=== PATIENT | male | born 1940 | race Caucasian/White ===

== ENCOUNTER → 2016-12-28 | Outpatient (CLI) | payer OTHER | LOC: FIMAGING 12:43 | PROVIDERS: ATTEND Family Medicine | DX: Z12.9 Encounter for screening for malignant neoplasm, site unspecified (principal); Z87.891 Personal history of nicotine dependence; J84.10 Pulmonary fibrosis, unspecified; K57.30 Diverticulosis of large intestine without perforation or abscess without bleeding ==

== ENCOUNTER 2017-05-02 16:26 | Emergency (ER) | payer OTHER ==
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
[2017-05-02 17:51] VITALS: BP 125/84; PULSE 81; RESP 20; TEMP 98.1; O2SAT 93
== END 2017-05-02 17:51 | disposition home or self-care (01) ==
DX: S00.83XA Contusion of other part of head, initial encounter (principal); S50.311A Abrasion of right elbow, initial encounter; S39.012A Strain of muscle, fascia and tendon of lower back, initial encounter; Y04.0XXA Assault by unarmed brawl or fight, initial encounter

== ENCOUNTER → 2017-11-23 | Outpatient (CLI) | payer OTHER | LOC: FIMAGING 08:09 | PROVIDERS: ATTEND Internal Medicine Critical Care Medicine | PROC: BD11ZZZ Fluoroscopy of Esophagus (ICD-10-PCS; principal; 2017-11-23) | DX: K44.9 Diaphragmatic hernia without obstruction or gangrene (principal); K21.9 Gastro-esophageal reflux disease without esophagitis ==

== ENCOUNTER → 2019-03-06 | Outpatient (CLI) | payer OTHER | LOC: FIMAGING 14:05 ==